=== PATIENT | male | born 1955 | race Two or more races ===

== ENCOUNTER 2019-05-25 09:40 | Emergency (ER) | payer SELFPAY ==
[~2019-05-25] VITALS: Ht 162.6 cm; Wt 68.0 kg
[2019-05-25 09:44] VITALS: BP 137/85
[2019-05-25] MEDS ORDERED: KETOROLAC 30 MG/1 ML ONE (09:51)
[2019-05-25] MEDS ORDERED: KETOROLAC 30 MG/1 ML IM ONE (10:00)
[2019-05-25] MEDS ORDERED: PLEASE ENTER ALLERGIES MC SCH (10:00)
--- NOTE | 2019-05-25 10:11 | NUR ---
RADHA RECEIVED FROM EMS. PT C/O RIGHT KNEE PAIN AND SWELLING SINCE 3AM TODAY. DENIES ANY OTHER SYMPTOMS. DENIES FALL/TRAUMA. ENGLISH SPEAKING. PT'S AOX4. RESPS EVEN AND UNLABORED. USE "[id number]"
--- NOTE | 2019-05-25 10:11 | NUR ---
XRAY IN ROOM.
--- NOTE | 2019-05-25 10:11 | NUR ---
PT MEDICATED PER EMAR. PT TOLERATED WELL.
--- NOTE | 2019-05-25 10:46 | NUR ---
THIS RN ATTEMPTED DC BUT PT HAS PAIN AND IS NOT ABLE TO WALK AT THIS TIME. EDMD NOTIFIED.
[2019-05-25] MEDS ORDERED: OXYcodone/APAP 10/325MG TABLET ONE (10:50)
--- NOTE | 2019-05-25 10:53 | NUR ---
PT MEDICATED PER EMAR FOR PAIN. PT TOLERATED WELL.
[2019-05-25] MEDS ORDERED: OXYcodone/APAP 10/325MG TABLET PO ONE (11:00)
--- NOTE | 2019-05-25 11:03 | NUR ---
PT STATES"I HAVE PAIN TOO MUCH. UNABLE TO WALK." EDMD NOTIFIED. PER [employer] [id number].
--- NOTE | 2019-05-25 11:28 | NUR ---
MEDICATIONS ORDERED FROM PHARMACY AT THIS TIME.
[2019-05-25] MEDS ORDERED: TRIAMCINOLONE ACETONIDE 40 MG/ML, 1ML IM ONE (11:30)
[2019-05-25] MEDS ORDERED: BUPIVACAINE/PF-EPI 0.25% 1:200K INFIL ONE (11:30)
--- NOTE | 2019-05-25 12:03 | NUR ---
Patient given discharge instructions and they have confirmed that they understand the instructions. this rn and edmd demonstrated how to use cruches. pt verbaly understanding at ar. taxi voucher given at ar.
== END 2019-05-25 12:04 | disposition home or self-care (01) ==
LOC: ED 10:12
DX: M17.11 Unilateral primary osteoarthritis, right knee (principal)
CPT/HCPCS: 20610; 73560; 99285; J1885